=== PATIENT | male | born 1965 | race Caucasian/White ===

== ENCOUNTER 2017-09-11 07:33 | Day surgery (SDC) ==
[2017-09-11] MEDS ORDERED: LIDOCAINE 1% 20 ML MDV ID ONE (07:50)
[2017-09-11] MEDS ORDERED: LIDOCAINE 1% 20 ML MDV ID STA (07:59)
[2017-09-11] MEDS ORDERED: DIPRIVAN 20 ML VIAL IVP ONE (09:10)
[2017-09-11] MEDS ORDERED: VERSED ONE (09:10)
[2017-09-11 10:14] VITALS: BP 121/81; TEMP 98.2
--- NOTE | 2017-09-12 08:19 | OP ---
PROCEDURE: COLONOSCOPY TO THE CECUM. ENDOSCOPIST: Geetha MCGOVERN M.D. INDICATION: SCREENING INSTRUMENT: PCFH-[id number]. MEDICATION: PER ANESTHESIA. PROCEDURE: The patient was positioned for colonoscopy. The digital rectal exam was negative. The colonoscope was inserted through the anus and advanced to the cecum. The cecum was identified using the ileocecal valve and the appendiceal orifice as landmarks. The scope was slowly withdrawn through an adequately prepped colon. Diverticuli were noted in the left colon. There is no evidence for polyp or mass. Small hemorrhoids are seen on retroflex exam. The patient tolerated the procedure without immediate complication. Withdrawal time 8 minutes and 31 seconds. PLAN: 1. Suggest repeat colonoscopy in 10 years. CC: Dr. Alistair PHILIP
== END 2017-09-11 10:33 | disposition home or self-care (01) ==
LOC: SURG 07:33
PROVIDERS: ATTEND Internal Medicine Gastroenterology
DX: Z12.11 Encounter for screening for malignant neoplasm of colon (principal); K57.30 Diverticulosis of large intestine without perforation or abscess without bleeding; K64.9 Unspecified hemorrhoids

== ENCOUNTER 2018-07-28 20:01 | Emergency (ER) ==
[2018-07-28 20:35] VITALS: BP 136/84; TEMP 98.1; BMI 33.2
--- NOTE | 2018-07-28 20:46 | ED.PDOC ---
General ED Provider: Dr. SIMA PIMENTEL Chief Complaint: Extremity Pain/Injury Stated Complaint: Patient is a 52 year old male who comes to the ER stating that he fell at home landing on the right elbow. Now has pain with range of motion and cannot extended it without severe pain. He is holding it at 80 degrees for comfort. Time Seen by Physician: 20:45 Mode of Arrival: Walk-In Information Source: Patient Exam Limitations: No limitations Primary Care Provider: LIA MORLEY Nursing and Triage Documentation Reviewed and Agree: Yes Does patient meet sepsis criteria?: No System Inflammatory Response Syndrome: Not Applicable Sepsis Protocol: For patient's 13 years and over: Temp is 96.8 and below OR 101 and greater Pulse >90 BPM Resp >20/minute Acutely Altered Mental Status Are patient's symptoms suggestive of a new infection, such as: -Pneumonia -Skin, Soft Tissue -Endocarditis -UTI -Bone, Joint Infection -Implantable Device -Acute Abdominal Infection -Wound Infection -Meningitis -Blood Stream Catheter Infection -Unknown Musculoskeletal Complaint Exam - Elbow Pain Complaint/Exam Mechanism of Injury: Reports: Trauma Onset/Duration: 1 hour ago Symptoms Are: Still present Onset of Pain: Reports: Immediate, Post accident Initial Severity: Moderate Current Severity: Severe Location: Reports: Diffuse Character: Reports: Aching, Throbbing Alleviating: Reports: None Aggravating: Reports: Movement, Twisting Associated Signs and Symptoms: Reports: Swelling, Bruising (with abrassion on the hand). Denies: Redness, Fever, Weakness, Numbness, Tingling Related Surgical History: Reports: None Elbow Findings: Present: Swelling Tenderness: Present: Medial Condyle, Lateral Condyle Limited Range of Motion: Present: Extension Differential Diagnoses: Closed Fracture, Sprain, Strain, Tendonitis Review of Systems - Review Of Systems Constitutional: Reports: No symptoms Eyes: Reports: No symptoms Ears, Nose, Mouth, Throat: Reports: No symptoms Respiratory: Reports: No symptoms Cardiac: Reports: No symptoms GI: Reports: No symptoms : Reports: No symptoms Musculoskeletal: Reports: Joint pain (Right elbow ) Skin: Reports: No symptoms Neurological: Reports: No symptoms Endocrine: Reports: No symptoms Hematologic/Lymphatic: Reports: No symptoms All Other Systems: Reviewed and Negative Past Medical History - Past Medical History Previously Healthy: Yes Endocrine: Reports: None Cardiovascular: Reports: Hypertension Respiratory: Reports: None Hematological: Reports: None Gastrointestinal: Reports: None Genitourinary: Reports: None Neuro/Psych: Reports: None Musculoskeletal: Reports: None Cancer: Reports: None - Surgical History General Surgical History: Reports: Other (MANDIBULAR BILATERAL SAGITAL SPLIT OSTEOTOMY 1989) - Family History Family History: Reports: Unknown - Social History Smoking Status: Never smoker Hx Substance Use: No Alcohol Screening: Occasionally - Immunizations Tetanus Shot up to Date: (2009) Physical Exam - Physical Exam Appearance: Ill-appearing Ill-appearing: Mild Pain Distress: Severe Neck: Supple Respiratory: Airway patent Cardiovascular: RRR, Pulses normal, No rub, No murmur Musculoskeletal: Limited ROM, Edema Skin: Warm, Dry Neurological: Alert, Oriented Psychiatric: Anxious Interpretation - Radiology Interpretation Radiology Interpretation By: Radiologist Radiology Results: Positive (non displaced right radial head fracture) Exam Interpreted: Other (right elbow ) Critical Care Note - Critical Care Note Total Time (mins): 0 Course - Course Orders, Labs, Meds: Orders Category Date Time Status ED SPLINT APPLICATION .ONCE EMERGENCY 07/28/18 21:37 Active Diphth,Pertuss(Acell),Tet Vac [Boostrix] MEDS 07/28/18 21:23 Discontinued 0.5 ml IM .ONCE ONE Hydromorphone HCl [Dilaudid 1 mg/ml Syringe] MEDS 07/28/18 21:23 Discontinued 1 mg IM ONCE STA ELBOW, RIGHT MIN 3 VIEWS Stat RADS 07/28/18 20:42 Completed Medications Discontinued Medications Generic Name Dose Route Start Last Admin Trade Name Freq PRN Reason Stop Dose Admin Diphtheria/Pertussis/Tetanus Vacc 0.5 ml 07/28/18 21:23 07/28/18 21:44 Boostrix IM 07/28/18 21:24 0.5 ml .ONCE ONE Administration Hydromorphone HCl 1 mg 07/28/18 21:23 07/28/18 21:38 Dilaudid 1 Mg/Ml Syringe IM 07/28/18 21:24 1 mg ONCE STA Administration Vital Signs: Temp Pulse Resp BP Pulse Ox 07/28/18 20:26 98.1 F 64 18 136/84 96 Departure - Departure Time of Disposition: 21:25 Disposition: HOME SELF-CARE Discharge Problem: Closed right radial fracture Qualifiers: Encounter type: initial encounter Radius location: head Fracture alignment: nondisplaced Qualified Code(s): S52.124A - Nondisplaced fracture of head of right radius, initial encounter for closed fracture Instructions: Elbow Fracture (ED), Tdap and Td Vaccines for Adults (ED) Condition: Good Pt referred to PMD for follow-up: Yes IPMP verified?: No Additional Instructions: Follow up with PCP for orthopedic referral in 2 days Keep arm elevated to decrease swelling Prescriptions: Hydrocodone Bit/Acetaminophen [Mckinney 5-325] 1 each PO Q6HR PRN #20 tablet PRN Reason: severe pain Ibuprofen [Motrin] 600 mg PO Q6H PRN #30 tablet PRN Reason: Analgesia Allergies/Adverse Reactions: Allergies erythromycin base Adverse Reaction (Verified 07/28/18 20:35) Penicillins Adverse Reaction (Verified 07/28/18 20:35) pseudoephedrine [From Actifed] Adverse Reaction (Verified 07/28/18 20:35) triprolidine [From Actifed] Adverse Reaction (Verified 07/28/18 20:35) Home Medications: Ambulatory Orders Lisinopril/Hydrochlorothiazide [Lisinopril-Hctz 10-12.5 mg Tab] 1 each PO DAILY 09/11/17 Hydrocodone Bit/Acetaminophen [Mckinney 5-325] 1 each PO Q6HR PRN #20 tablet Ibuprofen [Motrin] 600 mg PO Q6H PRN #30 tablet 07/28/18 Disposition Discussed With: Patient
--- NOTE | 2018-07-28 21:12 | DI ---
EXAM: Three-view right elbow COMPARISON: None HISTORY: Trauma and pain FINDINGS: There is a fracture of the right radial head which is nondisplaced. There is an osseous fr agment seen near the olecranon consistent with a second fracture. There are posterior and anterior fat pads. There is no dislocation. IMPRESSION: Right elbow fracture as described. If clinically indicated CT may be helpful to better d efine.
[2018-07-28] MEDS ORDERED: BOOSTRIX IM ONE (21:23)
[2018-07-28] MEDS ORDERED: DILAUDID 1 MG/ML SYRINGE IM STA (21:23)
== END 2018-07-28 22:00 | disposition home or self-care (01) ==
LOC: ED 20:25
DX: S52.124A Nondisplaced fracture of head of right radius, initial encounter for closed fracture (principal); W19.XXXA Unspecified fall, initial encounter; S60.519A Abrasion of unspecified hand, initial encounter
CPT/HCPCS: 90471; 90715; 96372; 99282